=== PATIENT | male | born 1935 | race American Indian/Alaskan Native ===

== ENCOUNTER 2017-03-24 07:28 | Inpatient (IN) | payer MEDICARE, MEDICAID ==
[~2017-03-24] VITALS: Ht 157.5 cm; Wt 56.8 kg
[~2017-03-24 07:28] MED LIST: CARV3.12 PO; FAMO-128 PO; FLUT1DIS INH; FURO20TA4 PO; GUAI600T45 PO; LISI2.5T2 PO; SPIIN INH
[2017-03-24] MEDS ORDERED: normal saline 1000ml 1,000 ML IV ONE (07:34)
[2017-03-24] MEDS ORDERED: azithromycin/NS 500mg/250ml 250 ML IV ONE (07:35)
[2017-03-24] MEDS ORDERED: methylPREDNISolone sod succ 125mg/2ml vial IV ONE (07:35)
[2017-03-24] MEDS ORDERED: albuterol 2.5 MG/3 ML nebule NEB ONE (07:35)
[2017-03-24] MEDS ORDERED: aspirin 81mg tab.chew PO ONE (07:35)
[2017-03-24] MEDS ORDERED: CefTRIAXone 2gm/NS 100ml IVPB 100 ML IV ONE (07:35)
[2017-03-24] MEDS ORDERED: normal saline 1000ML IV soln IVB ONE (07:35)
[2017-03-24 08:00] LABS: ABG HCO3 28.2 mmol/L (22.0-26.0); ABG PCO2 (T) 46.4 mmHg (35.0-48.0); ABG PH (T) 7.402 (7.350-7.450); ABG PO2 (T) 287.3 mmHg (83-108); ALLEN'S TEST Positive; MINUTE VOLUME 20 L/min; RESPIRATORY RATE 15 b/min; RESPIRATORY RATE (OBSERVED) 25 b/min
[2017-03-24 08:01] LABS: ABG BASE EXCESS 2.8 mmol/L (-2.0-3.0); ABG OXYGEN SATURATION 99.5 % (95-98); FCOHb 0.9 % (0.5-1.5); FMetHb 0.3 % (0.3-1.12); FO2Hb 98.3 % (94-100)
[2017-03-24 08:19] LABS: BASOPHILS # (AUTO) 0.2 X10'3 (0-0.2); MONOCYTES # (AUTO) 0.9 X10'3 (0-0.9)
[2017-03-24 08:26] LABS: BASOPHILS % (AUTO) 2.1 % (0-1); EOSINOPHILS % (AUTO) 0.3 % (0-6); HEMATOCRIT 40.5 % (42.0-52.0); HEMOGLOBIN 14.1 g/dl (14.0-17.9); LYMPHOCYTES % (AUTO) 17.8 % (21-51); MEAN CORPUSCULAR HEMOGLOBIN 33.7 PG (27.0-31.0); MEAN CORPUSCULAR HGB CONC 34.7 % (33.0-36.5); MEAN CORPUSCULAR VOLUME 96.9 FL (78-98); MONOCYTES % (AUTO) 8.2 % (2-12); NEUTROPHILS # (AUTO) 8.3 X10'3 (1.8-7.7); NEUTROPHILS % (AUTO) 71.6 % (42-75); PLATELET COUNT 174 X10'3 (140-440); RED BLOOD COUNT 4.18 X10'6 (4.70-6.10); RED CELL DISTRIBUTION WIDTH 13.2 % (11.5-14.5); WHITE BLOOD COUNT 11.4 X10'3 (4.5-11.0)
[2017-03-24 09:12] LABS: PARTIAL THROMBOPLASTIN TIME 25 SECONDS (22-32); PROTHROMBIN TIME 10.4 SECONDS (9.0-12.0)
[2017-03-24] MEDS ORDERED: DOXY-224 (09:23)
[2017-03-24] MEDS ORDERED: ALBU18HF2 (09:23)
[2017-03-24] MEDS ORDERED: PRED50TA (09:23)
[2017-03-24 09:25] LABS: ALANINE AMINOTRANSFERASE 13 U/L (12-78); ALBUMIN 3.1 G/DL (3.4-5.0); ALBUMIN/GLOBULIN RATIO 0.7 (1.1-1.5); ALKALINE PHOSPHATASE 73 IU/L (46-116); ANION GAP 10 (8-16); ASPARTATE AMINO TRANSFERASE 17 U/L (10-37); BILIRUBIN,TOTAL 0.8 MG/DL (0.1-1.0); BLOOD UREA NITROGEN 20 MG/DL (7-18); BUN/CREATININE RATIO 15.4 (5.4-32.0); CALCIUM 9.1 MG/DL (8.5-10.1); CHLORIDE 106 MMOL/L (99-107); CREATINE KINASE 72 U/L (39-308); GLUCOSE 99 MG/DL (70-104); MAGNESIUM 1.8 MG/DL (1.5-2.4); PHOSPHORUS 2.8 MG/DL (2.3-4.5); POTASSIUM 3.7 MMOL/L (3.5-5.1); SODIUM 145 MMOL/L (135-145); TOTAL CARBON DIOXIDE 29.5 MMOL/L (24-32); TOTAL PROTEIN 7.6 G/DL (6.4-8.2); eGFR 53 ML/MIN
[2017-03-24 10:20] LABS: ABG BASE EXCESS 0.7 mmol/L (-2.0-3.0); ABG HCO3 26.7 mmol/L (22.0-26.0); ABG OXYGEN SATURATION 98.6 % (95-98); ABG PCO2 (T) 48.6 mmHg (35.0-48.0); ABG PH (T) 7.358 (7.350-7.450); ABG PO2 (T) 139.8 mmHg (83-108); ALLEN'S TEST Positive; FCOHb 0.2 % (0.5-1.5); FMetHb 0.3 % (0.3-1.12); FO2Hb 98.1 % (94-100); MINUTE VOLUME 13 L/min; RESPIRATORY RATE 15 b/min; RESPIRATORY RATE (OBSERVED) 18 b/min; TOTAL HEMOGLOBIN 13.1 G/dl (14.0-18.0)
[2017-03-24] MEDS ORDERED: normal saline 1000ml 1,000 ML IV SCH (10:28)
[2017-03-24] MEDS ORDERED: magnesium 2GM in 50ml NS 50 ML IV PRN (10:30)
[2017-03-24] MEDS ORDERED: pantoprazole 40mg Tablet.DR PO SCH (10:30)
[2017-03-24] MEDS ORDERED: HYDROcodone/acetaminophen 5mg/325mg tablet PO PRN (10:30)
[2017-03-24] MEDS ORDERED: acetaminophen 325mg tablet PO PRN ×2 (10:30)
[2017-03-24] MEDS ORDERED: magnesium Cl slow-release 64mg tablet PO PRN (10:30)
[2017-03-24] MEDS ORDERED: levoFLOXACIN-Levaquin 500mg/D5 100 ML IV SCH (10:30)
[2017-03-24] MEDS ORDERED: mag hydrox/Alum hydrox/simeth 30ml oral suspension PO PRN (10:30)
[2017-03-24] MEDS ORDERED: potassium Cl 40MEQ/NS 500ml 500 ML IV PRN ×2 (10:30)
[2017-03-24] MEDS ORDERED: potassium Cl 20 mEq SR tablet PO PRN ×2 (10:30)
[2017-03-24] MEDS ORDERED: magnesium 4gm in 100ml NS 100 ML IV PRN (10:30)
[2017-03-24] MEDS ORDERED: ondansetron/PF 4mg/2ml inj IV PRN (10:30)
[2017-03-24] MEDS ORDERED: K and/or MAG REPLACEMENT MC SCH (10:30)
[2017-03-24] MEDS ORDERED: enoxaparin 40mg/0.4ml syringe SUBCUT SCH (10:30)
[2017-03-24] MEDS ORDERED: magnesium hydroxide 30ml (MOM) UD suspension PO PRN (10:30)
[2017-03-24] MEDS ORDERED: ipratropium/albuterol 3ml nebule NEB PRN (10:30)
[2017-03-24] MEDS ORDERED: HYDROcodone/acetaminophen 10/325mg tab PO PRN (10:30)
[2017-03-24] MEDS ORDERED: ipratropium/albuterol 3ml nebule NEB SCH (11:00)
[2017-03-24 12:15] VITALS: BP 163/86
[2017-03-24] MEDS ORDERED: methylPREDNISolone sod succ 125mg/2ml vial IV SCH (14:00)
[2017-03-24] MEDS ORDERED: temazepam 15mg capsule PO PRN (21:00)
[2017-03-25] MEDS ORDERED: cefTRIAXone 1g/NS 100ml IVPB 100 ML IV SCH (08:00)
== END 2017-03-24 14:33 | disposition left against medical advice (07) | DRG 193 ==
LOC: ER 07:29 → PCU 3S 12:24
PROVIDERS: ADMIT Family Medicine; ATTEND Family Medicine
PROC: 5A09357 Assistance with Respiratory Ventilation, Less than 24 Consecutive Hours, Continuous Positive Airway Pressure (ICD-10-PCS; principal; 2017-03-24)
DX: J18.9 Pneumonia, unspecified organism (principal); J96.01 Acute respiratory failure with hypoxia; J44.0 Chronic obstructive pulmonary disease with (acute) lower respiratory infection; J44.1 Chronic obstructive pulmonary disease with (acute) exacerbation; Z53.21 Procedure and treatment not carried out due to patient leaving prior to being seen by health care provider; Z79.899 Other long term (current) drug therapy; Z87.891 Personal history of nicotine dependence
CPT/HCPCS: 36415; 36600; 71045; 80053; 82550; 82803; 83605; 83735; 83880; 84100; 84145; 84484; 85018; 85025; 85610; 85730; 87040; 87077; 93005; 93306; 94640; 94660; 94760; 96365; 96366; 96367; 96368; 96372; 96375; 99291; J0456; J0696; J1650; J1956; J2930; J7030

== ENCOUNTER 2017-06-13 08:21 | Emergency (ER) | payer MEDICARE, MEDICAID ==
[~2017-06-13] VITALS: Ht 170.2 cm; Wt 51.0 kg
[~2017-06-13 08:21] MED LIST changes: +ALBU18HF2; -CARV3.12 PO; +DOXY-224 PO; -FAMO-128 PO; -FLUT1DIS INH; -FURO20TA4 PO; -GUAI600T45 PO; -LISI2.5T2 PO; +PRED50TA; -SPIIN INH
[2017-06-13] MEDS ORDERED: albuterol 2.5 MG/3 ML nebule CONTNEB PRN (09:00)
[2017-06-13] MEDS ORDERED: dexamethasone 4mg tablet PO ONE (09:00)
[2017-06-13 09:31] LABS: ABG HCO3 25.4 mmol/L (22.0-26.0); ABG OXYGEN SATURATION 94.7 % (95-98); ABG PCO2 (T) 44.3 mmHg (35.0-48.0); ABG PH (T) 7.377 (7.350-7.450); ABG PO2 (T) 74.4 mmHg (83-108); ALLEN'S TEST Positive; FCOHb 0.7 % (0.5-1.5); FLOW 4 L/min; FMetHb 0.2 % (0.3-1.12); FO2Hb 93.8 % (94-100); TOTAL HEMOGLOBIN 12.9 G/dl (14.0-18.0)
[2017-06-13 09:34] LABS: BASOPHILS % (AUTO) 0.1 % (0-1); EOSINOPHILS # (AUTO) 0.1 X10'3 (0-0.9); EOSINOPHILS % (AUTO) 1.7 % (0-6); HEMATOCRIT 35.9 % (42.0-52.0); HEMOGLOBIN 12.2 g/dl (14.0-17.9); LYMPHOCYTES # (AUTO) 0.7 X10'3 (1.1-4.8); LYMPHOCYTES % (AUTO) 9.1 % (21-51); MEAN CORPUSCULAR HEMOGLOBIN 33.7 PG (27.0-31.0); MEAN CORPUSCULAR VOLUME 99.3 FL (78-98); MONOCYTES # (AUTO) 0.4 X10'3 (0-0.9); MONOCYTES % (AUTO) 4.9 % (2-12); NEUTROPHILS # (AUTO) 6.7 X10'3 (1.8-7.7); NEUTROPHILS % (AUTO) 84.2 % (42-75); PLATELET COUNT 185 X10'3 (140-440); RED BLOOD COUNT 3.62 X10'6 (4.70-6.10); RED CELL DISTRIBUTION WIDTH 14.2 % (11.5-14.5); WHITE BLOOD COUNT 7.9 X10'3 (4.5-11.0)
[2017-06-13 09:48] LABS: ALANINE AMINOTRANSFERASE 18 U/L (12-78); ALBUMIN 2.9 G/DL (3.4-5.0); ALBUMIN/GLOBULIN RATIO 0.7 (1.1-1.5); ALKALINE PHOSPHATASE 74 IU/L (46-116); ANION GAP 8 (8-16); ASPARTATE AMINO TRANSFERASE 19 U/L (10-37); BILIRUBIN,TOTAL 0.9 MG/DL (0.1-1.0); BLOOD UREA NITROGEN 19 MG/DL (7-18); BUN/CREATININE RATIO 13.9 (5.4-32.0); CALCIUM 9.1 MG/DL (8.5-10.1); CHLORIDE 105 MMOL/L (99-107); CREATININE 1.37 MG/DL (0.60-1.10); GLUCOSE 107 MG/DL (70-104); POTASSIUM 3.7 MMOL/L (3.5-5.1); SODIUM 142 MMOL/L (135-145); TOTAL PROTEIN 7.3 G/DL (6.4-8.2); eGFR 50 ML/MIN
[2017-06-13 09:51] LABS: PARTIAL THROMBOPLASTIN TIME 27 SECONDS (22-32); PROTHROMBIN TIME 10.7 SECONDS (9.0-12.0)
[2017-06-13] MEDS ORDERED: ALBU8HFA PO (09:55)
[2017-06-13] MEDS ORDERED: DOXY100C43 PO (09:55)
[2017-06-13] MEDS ORDERED: PRED5TAB PO (09:55)
[2017-06-13 10:39] VITALS: BP 166/84
== END 2017-06-13 10:43 | disposition home or self-care (01) ==
LOC: ER 08:21
DX: J44.1 Chronic obstructive pulmonary disease with (acute) exacerbation (principal); I45.10 Unspecified right bundle-branch block; Z79.899 Other long term (current) drug therapy; F17.210 Nicotine dependence, cigarettes, uncomplicated
CPT/HCPCS: 36415; 36600; 71045; 80053; 82803; 83605; 83880; 84484; 85018; 85025; 85610; 85730; 87040; 93005; 94644; 94760; 99285; 99406; J8540

== ENCOUNTER 2017-06-14 11:34 | Emergency (ER) | payer MEDICARE, MEDICAID ==
[~2017-06-14] VITALS: Ht 167.6 cm; Wt 48.0 kg
[~2017-06-14 11:34] MED LIST changes: +ALBU8HFA PO; +DOXY-224; -DOXY-224 PO; +DOXY100C43 PO; +PRED5TAB PO
[2017-06-14] MEDS ORDERED: CefTRIAXone 2gm/D5W 50ml 50 ML IV ONE (12:30)
[2017-06-14] MEDS ORDERED: albuterol 2.5 MG/3 ML nebule NEB ONE (12:30)
[2017-06-14] MEDS ORDERED: azithromycin/NS 500mg/250ml 250 ML IV ONE (12:30)
[2017-06-14] MEDS ORDERED: methylPREDNISolone sod succ 125mg/2ml vial IV ONE (12:30)
[2017-06-14 12:45] LABS: BASOPHILS # (AUTO) 0.1 X10'3 (0-0.2); BASOPHILS % (AUTO) 1.3 % (0-1); EOSINOPHILS % (AUTO) 0.1 % (0-6); HEMATOCRIT 36.1 % (42.0-52.0); HEMOGLOBIN 12.1 g/dl (14.0-17.9); LYMPHOCYTES # (AUTO) 1.2 X10'3 (1.1-4.8); LYMPHOCYTES % (AUTO) 11.6 % (21-51); MEAN CORPUSCULAR HEMOGLOBIN 33.3 PG (27.0-31.0); MEAN CORPUSCULAR HGB CONC 33.5 % (33.0-36.5); MEAN CORPUSCULAR VOLUME 99.4 FL (78-98); MEAN PLATELET VOLUME 8.7 FL (7.4-10.4); MONOCYTES # (AUTO) 0.8 X10'3 (0-0.9); MONOCYTES % (AUTO) 7.3 % (2-12); NEUTROPHILS # (AUTO) 8.3 X10'3 (1.8-7.7); NEUTROPHILS % (AUTO) 79.7 % (42-75); PLATELET COUNT 181 X10'3 (140-440); RED BLOOD COUNT 3.63 X10'6 (4.70-6.10); RED CELL DISTRIBUTION WIDTH 13.4 % (11.5-14.5); WHITE BLOOD COUNT 10.4 X10'3 (4.5-11.0)
[2017-06-14 13:00] LABS: ALANINE AMINOTRANSFERASE 18 U/L (12-78); ALBUMIN 3.2 G/DL (3.4-5.0); ALBUMIN/GLOBULIN RATIO 0.7 (1.1-1.5); ALKALINE PHOSPHATASE 76 IU/L (46-116); ANION GAP 8 (8-16); ASPARTATE AMINO TRANSFERASE 18 U/L (10-37); BILIRUBIN,TOTAL 0.9 MG/DL (0.1-1.0); BLOOD UREA NITROGEN 18 MG/DL (7-18); BUN/CREATININE RATIO 13.5 (5.4-32.0); CALCIUM 9.5 MG/DL (8.5-10.1); CHLORIDE 102 MMOL/L (99-107); CREATININE 1.33 MG/DL (0.60-1.10); GLUCOSE 98 MG/DL (70-104); POTASSIUM 4.3 MMOL/L (3.5-5.1); SODIUM 139 MMOL/L (135-145); TOTAL PROTEIN 7.5 G/DL (6.4-8.2); eGFR 52 ML/MIN
[2017-06-14 13:52] VITALS: BP 160/89
== END 2017-06-14 13:55 | disposition left against medical advice (07) ==
LOC: ER 11:34
DX: J44.1 Chronic obstructive pulmonary disease with (acute) exacerbation (principal); J90 Pleural effusion, not elsewhere classified; I25.10 Atherosclerotic heart disease of native coronary artery without angina pectoris; F17.200 Nicotine dependence, unspecified, uncomplicated; I50.9 Heart failure, unspecified; Z79.899 Other long term (current) drug therapy; Z99.81 Dependence on supplemental oxygen
CPT/HCPCS: 36415; 71046; 80053; 84484; 85025; 99285

== ENCOUNTER 2017-06-19 02:23 | Inpatient (IN) | payer MEDICARE, MEDICAID, OTHER ==
[~2017-06-19] VITALS: Ht 167.6 cm; Wt 59.0 kg
[~2017-06-19 02:23] MED LIST changes: -DOXY-224; +DOXY-224 PO
[2017-06-19] MEDS ORDERED: ipratropium/albuterol 3ml nebule NEB ONE (02:35)
[2017-06-19] MEDS ORDERED: dexamethasone 4mg tablet PO ONE (02:35)
[2017-06-19] MEDS ORDERED: normal saline 1000ML IV soln IV ONE (02:55)
[2017-06-19] MEDS ORDERED: azithromycin 250mg tablet PO ONE (02:55)
[2017-06-19] MEDS ORDERED: CefTRIAXone 2gm/D5W 50ml 50 ML IV ONE (02:55)
[2017-06-19 03:01] LABS: ABG BASE EXCESS 0.9 mmol/L (-2.0-3.0); ABG HCO3 24.9 mmol/L (22.0-26.0); ABG OXYGEN SATURATION 95.9 % (95-98); ABG PCO2 (T) 36.9 mmHg (35.0-48.0); ABG PH (T) 7.444 (7.350-7.450); ABG PO2 (T) 76.8 mmHg (83-108); ALLEN'S TEST Positive; FLOW 3 L/min; FMetHb 0.1 % (0.3-1.12); FO2Hb 94.8 % (94-100); PATIENT TEMPERATURE 36.5; TOTAL HEMOGLOBIN 13.3 G/dl (14.0-18.0)
[2017-06-19 03:03] LABS: BASOPHILS % (AUTO) 0.5 % (0-1); EOSINOPHILS # (AUTO) 0.1 X10'3 (0-0.9); EOSINOPHILS % (AUTO) 1.5 % (0-6); HEMATOCRIT 37.4 % (42.0-52.0); HEMOGLOBIN 12.8 g/dl (14.0-17.9); LYMPHOCYTES # (AUTO) 1.4 X10'3 (1.1-4.8); LYMPHOCYTES % (AUTO) 18.1 % (21-51); MEAN CORPUSCULAR HEMOGLOBIN 33.9 PG (27.0-31.0); MEAN CORPUSCULAR HGB CONC 34.2 % (33.0-36.5); MEAN CORPUSCULAR VOLUME 99.2 FL (78-98); MEAN PLATELET VOLUME 8.6 FL (7.4-10.4); MONOCYTES # (AUTO) 0.6 X10'3 (0-0.9); MONOCYTES % (AUTO) 7.3 % (2-12); NEUTROPHILS # (AUTO) 5.6 X10'3 (1.8-7.7); NEUTROPHILS % (AUTO) 72.6 % (42-75); PLATELET COUNT 192 X10'3 (140-440); RED BLOOD COUNT 3.77 X10'6 (4.70-6.10); RED CELL DISTRIBUTION WIDTH 14.8 % (11.5-14.5); WHITE BLOOD COUNT 7.7 X10'3 (4.5-11.0)
[2017-06-19 03:50] LABS: ALANINE AMINOTRANSFERASE 11 U/L (12-78); ALBUMIN 2.7 G/DL (3.4-5.0); ALBUMIN/GLOBULIN RATIO 0.7 (1.1-1.5); ALKALINE PHOSPHATASE 66 IU/L (46-116); ANION GAP 10 (8-16); ASPARTATE AMINO TRANSFERASE 16 U/L (10-37); BILIRUBIN,TOTAL 0.7 MG/DL (0.1-1.0); BLOOD UREA NITROGEN 21 MG/DL (7-18); CALCIUM 8.4 MG/DL (8.5-10.1); CHLORIDE 108 MMOL/L (99-107); GLUCOSE 106 MG/DL (70-104); SODIUM 144 MMOL/L (135-145); TOTAL CARBON DIOXIDE 26.5 MMOL/L (24-32); TOTAL PROTEIN 6.6 G/DL (6.4-8.2); eGFR 49 ML/MIN
[2017-06-19] MEDS ORDERED: furosemide 10 MG/1 ML 10ml inj IV ONE (04:00)
[2017-06-19] MEDS ORDERED: LORazepam 2 mg/ml vial IV ONE (04:20)
[2017-06-19] MEDS ORDERED: acetaminophen 325mg tablet PO PRN (05:00)
[2017-06-19] MEDS ORDERED: HYDROcodone/acetaminophen 5mg/325mg tablet PO PRN (05:00)
[2017-06-19] MEDS ORDERED: ondansetron/PF 4mg/2ml inj IV PRN (05:00)
[2017-06-19] MEDS ORDERED: morphine 4 MG/ML inj SYRINge IV PRN (05:00)
[2017-06-19] MEDS ORDERED: FLU VACC QS2017-18 36MOS UP/PF 60 MCG/0.5 ML SYRINGE IMVAC ONE (07:55)
[2017-06-19] MEDS ORDERED: pneumococcal 23-VAL P-sac vacc 25 mcg/0.5ml vial IMVAC ONE (07:55)
[2017-06-19 08:00] VITALS: BP 153/85
[2017-06-19] MEDS ORDERED: furosemide 10 MG/1 ML 10ml inj IV SCH (08:00)
[2017-06-19] MEDS ORDERED: methylPREDNISolone sod succ 125mg/2ml vial IV SCH (08:00)
[2017-06-19] MEDS ORDERED: furosemide 40mg/4ml inj IV SCH (08:00)
[2017-06-19] MEDS ORDERED: lisinopril 5mg tablet PO SCH (08:00)
[2017-06-19] MEDS: ipratropium/albuterol 3ml nebule NEB SCH ×5 (08:43→23:42)
[2017-06-19] MEDS: budesonide 0.5mg/2ml UD nebule IH SCH ×2 (08:44→19:10)
[2017-06-19] MEDS: methylPREDNISolone sod succ/PF 40mg inj. IV SCH ×2 (08:45→16:16)
[2017-06-19] MEDS: aspirin 81mg tab.chew PO SCH (08:52)
[2017-06-19] MEDS: carVEDilol 3.125mg tablet PO SCH ×2 (08:52→20:00)
[2017-06-19 12:00] VITALS: BP 134/71
[2017-06-19 19:00] VITALS: BP 100/59
[2017-06-19] MEDS: furosemide 20 MG/2 ML vial IV SCH (20:21)
[2017-06-20] VITALS: BP 102/59
[2017-06-20] MEDS: methylPREDNISolone sod succ/PF 40mg inj. IV SCH ×4 (00:24→23:57)
[2017-06-20] MEDS: ipratropium/albuterol 3ml nebule NEB SCH ×5 (03:39→20:31)
[2017-06-20 05:51] LABS: BASOPHILS % (AUTO) 0 % (0-1); EOSINOPHILS # (AUTO) 0.1 X10'3 (0-0.9); EOSINOPHILS % (AUTO) 1.3 % (0-6); HEMATOCRIT 34.7 % (42.0-52.0); HEMOGLOBIN 11.8 g/dl (14.0-17.9); LYMPHOCYTES # (AUTO) 0.6 X10'3 (1.1-4.8); LYMPHOCYTES % (AUTO) 7.8 % (21-51); MEAN CORPUSCULAR HEMOGLOBIN 33.5 PG (27.0-31.0); MEAN CORPUSCULAR HGB CONC 34.1 % (33.0-36.5); MEAN CORPUSCULAR VOLUME 98.4 FL (78-98); MEAN PLATELET VOLUME 8.5 FL (7.4-10.4); MONOCYTES # (AUTO) 0.3 X10'3 (0-0.9); MONOCYTES % (AUTO) 3.8 % (2-12); NEUTROPHILS # (AUTO) 6.8 X10'3 (1.8-7.7); NEUTROPHILS % (AUTO) 87.1 % (42-75); PLATELET COUNT 192 X10'3 (140-440); RED BLOOD COUNT 3.53 X10'6 (4.70-6.10); RED CELL DISTRIBUTION WIDTH 14.1 % (11.5-14.5); WHITE BLOOD COUNT 7.8 X10'3 (4.5-11.0)
[2017-06-20 06:15] LABS: ALBUMIN 2.8 G/DL (3.4-5.0); ANION GAP 7 (8-16); BLOOD UREA NITROGEN 33 MG/DL (7-18); CALCIUM 8.6 MG/DL (8.5-10.1); CHLORIDE 103 MMOL/L (99-107); CHOL/HDL RATIO 2.5 (0.00-4.99); CHOLESTEROL 177 MG/DL (0-200); CREATININE 1.94 MG/DL (0.60-1.10); GLUCOSE 139 MG/DL (70-104); HDL CHOLESTEROL 72 MG/DL (35-60); LDL CHOLESTEROL 88 MG/DL (50-100); POTASSIUM 3.6 MMOL/L (3.5-5.1); SODIUM 143 MMOL/L (135-145); TOTAL CARBON DIOXIDE 32.7 MMOL/L (24-32); TRIGLYCERIDES 52 MG/DL (20-135); eGFR 33 ML/MIN
[2017-06-20] MEDS: furosemide 20 MG/2 ML vial IV SCH ×2 (08:00→21:00)
[2017-06-20] MEDS: budesonide 0.5mg/2ml UD nebule IH SCH ×2 (08:07→20:31)
[2017-06-20] MEDS: CefTRIAXone/D5W-Rocephin 1gm 50 ML IV SCH (09:01)
[2017-06-20] MEDS: aspirin 81mg tab.chew PO SCH (09:01)
[2017-06-20] MEDS: carVEDilol 3.125mg tablet PO SCH ×2 (09:01→21:00)
[2017-06-20] MEDS: lisinopril 5mg tablet PO SCH (09:02)
[2017-06-20 09:19] VITALS: BP 126/70
[2017-06-20 11:17] VITALS: BP 124/61
[2017-06-20] MEDS ORDERED: LORazepam 2 mg/ml vial IV ONE (16:15)
[2017-06-20] MEDS ORDERED: LORazepam 2 mg/ml vial IV PRN (16:15)
[2017-06-20 19:00] VITALS: BP 123/72
[2017-06-20] MEDS: lactobacillus rhamnosus 10,000 MMU CELLS/CAPSULE PO SCH (21:01)
[2017-06-21] VITALS: BP 136/72
[2017-06-21] MEDS: ipratropium/albuterol 3ml nebule NEB SCH ×3 (00:12→08:13)
[2017-06-21 06:02] LABS: BASOPHILS % (AUTO) 0 % (0-1); EOSINOPHILS # (AUTO) 0.2 X10'3 (0-0.9); EOSINOPHILS % (AUTO) 1.9 % (0-6); HEMATOCRIT 33.2 % (42.0-52.0); HEMOGLOBIN 11.4 g/dl (14.0-17.9); LYMPHOCYTES # (AUTO) 0.5 X10'3 (1.1-4.8); LYMPHOCYTES % (AUTO) 4.2 % (21-51); MEAN CORPUSCULAR HEMOGLOBIN 33.6 PG (27.0-31.0); MEAN CORPUSCULAR HGB CONC 34.3 % (33.0-36.5); MEAN CORPUSCULAR VOLUME 97.9 FL (78-98); MEAN PLATELET VOLUME 8.5 FL (7.4-10.4); MONOCYTES # (AUTO) 0.4 X10'3 (0-0.9); MONOCYTES % (AUTO) 3.8 % (2-12); NEUTROPHILS % (AUTO) 90.1 % (42-75); PLATELET COUNT 191 X10'3 (140-440); RED CELL DISTRIBUTION WIDTH 14.1 % (11.5-14.5); WHITE BLOOD COUNT 11.1 X10'3 (4.5-11.0)
[2017-06-21 06:17] LABS: ALBUMIN 2.6 G/DL (3.4-5.0); ANION GAP 9 (8-16); BLOOD UREA NITROGEN 41 MG/DL (7-18); BUN/CREATININE RATIO 24.6 (5.4-32.0); CALCIUM 8.7 MG/DL (8.5-10.1); CHLORIDE 100 MMOL/L (99-107); CREATININE 1.67 MG/DL (0.60-1.10); GLUCOSE 125 MG/DL (70-104); POTASSIUM 3.6 MMOL/L (3.5-5.1); SODIUM 139 MMOL/L (135-145); TOTAL CARBON DIOXIDE 30.5 MMOL/L (24-32); eGFR 40 ML/MIN
[2017-06-21 07:09] VITALS: BP 132/79
[2017-06-21] MEDS: budesonide 0.5mg/2ml UD nebule IH SCH (08:13)
[2017-06-21] MEDS: furosemide 20 MG/2 ML vial IV SCH (09:08)
[2017-06-21] MEDS: methylPREDNISolone sod succ/PF 40mg inj. IV SCH (09:08)
[2017-06-21] MEDS: CefTRIAXone/D5W-Rocephin 1gm 50 ML IV SCH (09:09)
[2017-06-21] MEDS: lisinopril 5mg tablet PO SCH (09:09)
[2017-06-21] MEDS: aspirin 81mg tab.chew PO SCH (09:11)
[2017-06-21] MEDS: carVEDilol 3.125mg tablet PO SCH (09:11)
[2017-06-21] MEDS: lactobacillus rhamnosus 10,000 MMU CELLS/CAPSULE PO SCH (09:12)
[2017-06-21] MEDS ORDERED: levoFLOXACIN 250mg tablet PO SCH (09:50)
[2017-06-21] MEDS ORDERED: LORazepam 0.5 MG tablet PO PRN (09:50)
[2017-06-21] MEDS ORDERED: PRED20TA PO (10:28)
[2017-06-21] MEDS ORDERED: COR3.125T PO (10:28)
[2017-06-21] MEDS ORDERED: ASPI-1265 PO (10:28)
[2017-06-21] MEDS ORDERED: LISI-604 PO (10:28)
[2017-06-21] MEDS ORDERED: LEVO250T58 PO (10:28)
[2017-06-21] MEDS ORDERED: FURO20TA4 PO (10:28)
[2017-06-21] MEDS ORDERED: predniSONE 20 mg tablet PO SCH (14:00)
[2017-06-22] MEDS ORDERED: furosemide 20MG tablet PO SCH (08:00)
== END 2017-06-21 10:53 | disposition left against medical advice (07) | DRG 291 ==
LOC: ER 02:24 → ED HOLD 04:56 → SUR 3N 07:54
PROVIDERS: ADMIT Family Medicine; ATTEND Family Medicine
DX: I13.0 Hypertensive heart and chronic kidney disease with heart failure and stage 1 through stage 4 chronic kidney disease, or unspecified chronic kidney disease (principal); I50.23 Acute on chronic systolic (congestive) heart failure; J96.00 Acute respiratory failure, unspecified whether with hypoxia or hypercapnia; J18.9 Pneumonia, unspecified organism; J44.0 Chronic obstructive pulmonary disease with (acute) lower respiratory infection; N18.3 Chronic kidney disease, stage 3 (moderate); D64.9 Anemia, unspecified; Z99.81 Dependence on supplemental oxygen; J44.1 Chronic obstructive pulmonary disease with (acute) exacerbation; I25.10 Atherosclerotic heart disease of native coronary artery without angina pectoris; F17.210 Nicotine dependence, cigarettes, uncomplicated; F12.90 Cannabis use, unspecified, uncomplicated; Z66 Do not resuscitate; Z53.21 Procedure and treatment not carried out due to patient leaving prior to being seen by health care provider; Z91.19 Patient's noncompliance with other medical treatment and regimen; Z28.21 Immunization not carried out because of patient refusal; Z79.899 Other long term (current) drug therapy; Z82.5 Family history of asthma and other chronic lower respiratory diseases; Z71.6 Tobacco abuse counseling
CPT/HCPCS: 36415; 36600; 71045; 80048; 80053; 80061; 82803; 83605; 83880; 84145; 84484; 85018; 85025; 87040; 87070; 90732; 93005; 94640; 94760; J0696; J1940; J2060; J2270; J2920; J7030; J7626; J8540; Q2037

== ENCOUNTER 2017-08-05 07:22 | Emergency (ER) | payer MEDICARE, MEDICAID ==
[~2017-08-05] VITALS: Ht 177.8 cm; Wt 45.0 kg
[~2017-08-05 07:22] MED LIST changes: -ALBU8HFA PO; +ASPI-1265 PO; +COR3.125T PO; -DOXY-224 PO; -DOXY100C43 PO; +FURO20TA4 PO; +LEVO250T58 PO; +LISI-604 PO; +PRED20TA PO; -PRED50TA; -PRED5TAB PO
[2017-08-05] MEDS ORDERED: nitroGLYCERIN-Tridil 50MG/D5W 250 ML IV PRN (07:29)
[2017-08-05] MEDS ORDERED: aspirin 81mg tab.chew PO ONE (07:30)
[2017-08-05 08:09] LABS: BASOPHILS % (AUTO) 0.3 % (0-1); EOSINOPHILS # (AUTO) 0.1 X10'3 (0-0.9); EOSINOPHILS % (AUTO) 1.4 % (0-6); HEMATOCRIT 35.8 % (42.0-52.0); HEMOGLOBIN 12.2 g/dl (14.0-17.9); LYMPHOCYTES # (AUTO) 0.8 X10'3 (1.1-4.8); LYMPHOCYTES % (AUTO) 8.2 % (21-51); MEAN CORPUSCULAR HEMOGLOBIN 33.5 PG (27.0-31.0); MEAN CORPUSCULAR VOLUME 98.5 FL (78-98); MEAN PLATELET VOLUME 8.8 FL (7.4-10.4); MONOCYTES # (AUTO) 0.5 X10'3 (0-0.9); MONOCYTES % (AUTO) 4.7 % (2-12); NEUTROPHILS # (AUTO) 8.3 X10'3 (1.8-7.7); NEUTROPHILS % (AUTO) 85.4 % (42-75); PLATELET COUNT 189 X10'3 (140-440); RED BLOOD COUNT 3.64 X10'6 (4.70-6.10); RED CELL DISTRIBUTION WIDTH 14.9 % (11.5-14.5); WHITE BLOOD COUNT 9.7 X10'3 (4.5-11.0)
[2017-08-05 08:22] LABS: ALANINE AMINOTRANSFERASE 9 U/L (12-78); ALBUMIN 2.8 G/DL (3.4-5.0); ALBUMIN/GLOBULIN RATIO 0.7 (1.1-1.5); ALKALINE PHOSPHATASE 67 IU/L (46-116); ANION GAP 8 (8-16); BLOOD UREA NITROGEN 19 MG/DL (7-18); BUN/CREATININE RATIO 13.9 (5.4-32.0); CALCIUM 8.6 MG/DL (8.5-10.1); CHLORIDE 108 MMOL/L (99-107); CREATININE 1.37 MG/DL (0.60-1.10); GLUCOSE 98 MG/DL (70-104); SODIUM 143 MMOL/L (135-145); TOTAL CARBON DIOXIDE 27.3 MMOL/L (24-32); TOTAL PROTEIN 6.9 G/DL (6.4-8.2); eGFR 50 ML/MIN
[2017-08-05 08:27] LABS: MAGNESIUM 1.9 MG/DL (1.5-2.4)
[2017-08-05 08:30] LABS: ASPARTATE AMINO TRANSFERASE 18 U/L (10-37); POTASSIUM 4.1 MMOL/L (3.5-5.1)
[2017-08-05 09:37] VITALS: BP 167/98
== END 2017-08-05 09:20 | disposition left against medical advice (07) ==
LOC: ER 07:22
DX: J44.1 Chronic obstructive pulmonary disease with (acute) exacerbation (principal); I13.0 Hypertensive heart and chronic kidney disease with heart failure and stage 1 through stage 4 chronic kidney disease, or unspecified chronic kidney disease; I50.9 Heart failure, unspecified; N18.9 Chronic kidney disease, unspecified; I25.10 Atherosclerotic heart disease of native coronary artery without angina pectoris; Z87.891 Personal history of nicotine dependence; Z79.82 Long term (current) use of aspirin; Z79.899 Other long term (current) drug therapy
CPT/HCPCS: 36415; 71045; 80053; 83735; 83880; 84484; 85025; 93005; 96365; 99285; J3490

== ENCOUNTER 2018-05-10 09:45 | Inpatient (IN) | payer MEDICARE, MEDICAID ==
[~2018-05-10] VITALS: Ht 167.6 cm; Wt 50.0 kg
[2018-05-10] MEDS ORDERED: ipratropium/albuterol 3ml nebule NEB ONE (09:50)
[2018-05-10 10:07] LABS: BASOPHILS % (AUTO) 0.4 % (0-1); EOSINOPHILS % (AUTO) 0.1 % (0-6); HEMOGLOBIN 12.7 g/dl (14.0-17.9); LYMPHOCYTES # (AUTO) 0.7 X10'3 (1.1-4.8); LYMPHOCYTES % (AUTO) 10.5 % (21-51); MEAN CORPUSCULAR HEMOGLOBIN 32.6 PG (27.0-31.0); MEAN CORPUSCULAR HGB CONC 33.4 g/dL (33.0-36.5); MEAN CORPUSCULAR VOLUME 97.7 FL (78-98); MEAN PLATELET VOLUME 8.3 FL (7.4-10.4); MONOCYTES # (AUTO) 0.5 X10'3 (0-0.9); MONOCYTES % (AUTO) 6.7 % (2-12); NEUTROPHILS # (AUTO) 5.7 X10'3 (1.8-7.7); NEUTROPHILS % (AUTO) 82.3 % (42-75); PLATELET COUNT 191 X10'3 (140-440); RED BLOOD COUNT 3.89 X10'6 (4.70-6.10); RED CELL DISTRIBUTION WIDTH 15.9 % (11.5-14.5); WHITE BLOOD COUNT 6.9 X10'3 (4.5-11.0)
[2018-05-10 10:23] LABS: ALANINE AMINOTRANSFERASE 13 U/L (12-78); ALBUMIN 3.1 G/DL (3.4-5.0); ALBUMIN/GLOBULIN RATIO 0.7 (1.1-1.5); ALKALINE PHOSPHATASE 79 IU/L (46-116); ANION GAP 11 (8-16); ASPARTATE AMINO TRANSFERASE 23 U/L (10-37); BILIRUBIN,TOTAL 1.2 MG/DL (0.1-1.0); BLOOD UREA NITROGEN 20 MG/DL (7-18); CALCIUM 9.2 MG/DL (8.5-10.1); CHLORIDE 101 MMOL/L (99-107); CREATININE 1.67 MG/DL (0.60-1.10); GLUCOSE 109 MG/DL (70-104); POTASSIUM 4.4 MMOL/L (3.5-5.1); SODIUM 138 MMOL/L (135-145); TOTAL CARBON DIOXIDE 25.9 MMOL/L (24-32); TOTAL PROTEIN 7.5 G/DL (6.4-8.2); eGFR 40 ML/MIN
[2018-05-10 10:39] LABS: INR 1.1 INR; PARTIAL THROMBOPLASTIN TIME 27 SECONDS (22-32); PROTHROMBIN TIME 11.4 SECONDS (9.0-12.0)
--- NOTE | 2018-05-10 10:52 | NUR ---
PT REQUEST TO SIT UP IN CHAIR. PT TRANSEFERRED TO CHAIR FOR COMFORT, NO ASSISTANCE NEEDED. NO DISTRESS NOTED. WILL CONTINUE TO MONITOR.
[2018-05-10] MEDS ORDERED: NO HOME MEDS (12:29)
[2018-05-10] MEDS ORDERED: potassium Cl 40MEQ/NS 500ml 500 ML IV PRN ×2 (13:55)
[2018-05-10] MEDS ORDERED: magnesium 4gm in 100ml NS 100 ML IV PRN (13:55)
[2018-05-10] MEDS ORDERED: magnesium 2GM in 50ml NS 50 ML IV PRN (13:55)
[2018-05-10] MEDS ORDERED: potassium Cl 20 mEq SR tablet PO PRN ×2 (13:55)
[2018-05-10] MEDS ORDERED: ondansetron/PF 4mg/2ml inj IV PRN (13:55)
[2018-05-10] MEDS ORDERED: magnesium hydroxide 30ml (MOM) UD suspension PO PRN (13:55)
[2018-05-10] MEDS ORDERED: acetaminophen 325mg tablet PO PRN (13:55)
[2018-05-10] MEDS ORDERED: magnesium Cl slow-release 64mg tablet PO PRN (13:55)
[2018-05-10] MEDS ORDERED: mag hydrox/Alum hydrox/simeth 30ml oral suspension PO PRN (13:55)
[2018-05-10 14:56] LABS: ABG BASE EXCESS 0.7 mmol/L (-2.0-3.0); ABG OXYGEN SATURATION 94.7 % (95-98); ABG PCO2 (T) 34.4 mmHg (35.0-48.0); ABG PH (T) 7.462 (7.350-7.450); ABG PO2 (T) 76.3 mmHg (83-108); FCOHb 0.3 % (0.5-1.5); FMetHb 0.2 % (0.3-1.12); FO2Hb 94.2 % (94-100); TOTAL HEMOGLOBIN 12.9 G/dl (14.0-18.0)
[2018-05-10] MEDS: CefTRIAXone/D5W-Rocephin 1gm 50 ML IV SCH (15:22)
[2018-05-10] MEDS: methylPREDNISolone sod succ/PF 40mg inj. IV SCH (15:22)
[2018-05-10] MEDS ORDERED: albuterol 2.5 MG/3 ML nebule NEB PRN (16:30)
[2018-05-10] MEDS: heparin, porcine 5000 units/ml vial SQ SCH ×3 (20:00→20:09)
[2018-05-10] MEDS: carVEDilol 3.125mg tablet PO SCH (20:05)
--- NOTE | 2018-05-10 20:10 | NUR ---
AFTER SPEAKING WITH PT ABOUT HIS NIGHTIME RX HE AGREED TO TAKE, I THEN PULLED UP HEPARIN DOSE AND WENT TO ADMINISTER AND PT REFUSED SHOT SAYING "NOTHINGS WRONG WITH ME". NON ADMIN HEPARIN SHOT.
[2018-05-10] MEDS ORDERED: Melatonin 3mg tablet PO SCH (21:00)
[2018-05-10] MEDS ORDERED: Melatonin 3mg tablet PO ONE (21:25)
--- NOTE | 2018-05-10 21:39 | NUR ---
PT SITTING UP ON SIDE OF BED. NO DISTRESS NOTED AT THIS TIME.
[2018-05-11] MEDS: methylPREDNISolone sod succ/PF 40mg inj. IV SCH ×3 (00:49→16:01)
--- NOTE | 2018-05-11 01:25 | NUR ---
Patient in room PCU 3027. I have received report from Nani SOLITARIO and had the opportunity to ask questions and assume patient care.
--- NOTE | 2018-05-11 01:35 | NUR ---
Patient arrived to room 3027A via gurney from the ER very SOB, all belongings on person. Patient was oriented to room, call light, and plan of care. All questions answered. Tele monitor put on and vital signs stable. Will continue to monitor.
[2018-05-11 01:40] VITALS: BP 167/104
[2018-05-11 05:55] LABS: BASOPHILS % (AUTO) 0.2 % (0-1); EOSINOPHILS % (AUTO) 0 % (0-6); HEMATOCRIT 37.7 % (42.0-52.0); HEMOGLOBIN 12.4 g/dl (14.0-17.9); LYMPHOCYTES # (AUTO) 0.4 X10'3 (1.1-4.8); LYMPHOCYTES % (AUTO) 11.5 % (21-51); MEAN CORPUSCULAR HEMOGLOBIN 32.2 PG (27.0-31.0); MEAN CORPUSCULAR VOLUME 97.7 FL (78-98); MEAN PLATELET VOLUME 8.7 FL (7.4-10.4); MONOCYTES # (AUTO) 0.1 X10'3 (0-0.9); MONOCYTES % (AUTO) 2.4 % (2-12); NEUTROPHILS # (AUTO) 2.8 X10'3 (1.8-7.7); NEUTROPHILS % (AUTO) 85.9 % (42-75); PLATELET COUNT 181 X10'3 (140-440); RED BLOOD COUNT 3.86 X10'6 (4.70-6.10); RED CELL DISTRIBUTION WIDTH 15.7 % (11.5-14.5); WHITE BLOOD COUNT 3.3 X10'3 (4.5-11.0)
[2018-05-11 06:00] VITALS: BP 170/87
[2018-05-11 06:13] LABS: ALBUMIN 2.8 G/DL (3.4-5.0); ALBUMIN/GLOBULIN RATIO 0.6 (1.1-1.5); ANION GAP 7 (8-16); ASPARTATE AMINO TRANSFERASE 15 U/L (10-37); BILIRUBIN,TOTAL 0.9 MG/DL (0.1-1.0); BLOOD UREA NITROGEN 27 MG/DL (7-18); BUN/CREATININE RATIO 16.5 (5.4-32.0); CALCIUM 8.9 MG/DL (8.5-10.1); CHLORIDE 101 MMOL/L (99-107); CREATININE 1.64 MG/DL (0.60-1.10); GLUCOSE 135 MG/DL (70-104); POTASSIUM 4.4 MMOL/L (3.5-5.1); SODIUM 136 MMOL/L (135-145); TOTAL CARBON DIOXIDE 27.6 MMOL/L (24-32); TOTAL PROTEIN 7.2 G/DL (6.4-8.2); eGFR 41 ML/MIN
[2018-05-11 06:14] LABS: ALANINE AMINOTRANSFERASE 10 U/L (12-78); ALKALINE PHOSPHATASE 71 IU/L (46-116)
--- NOTE | 2018-05-11 06:14 | NUR ---
Problems reprioritized. Patient report given, questions answered & plan of care reviewed with Evan SOLITARIO.
--- NOTE | 2018-05-11 06:37 | NUR ---
Patient in room PCU 3027. I have received report from Brooklynn SOLITARIO and had the opportunity to ask questions and assume patient care.
[2018-05-11] MEDS: K and/or MAG REPLACEMENT MC SCH (07:17)
[2018-05-11] MEDS ORDERED: enoxaparin 50mg/0.5ml (from 3ml vial) syringe SUBCUT SCH (09:20)
[2018-05-11] MEDS ORDERED: azithromycin/NS 500mg/250ml 250 ML IV ONE (09:20)
[2018-05-11] MEDS: CefTRIAXone/D5W-Rocephin 1gm 50 ML IV SCH (09:26)
[2018-05-11] MEDS: carVEDilol 3.125mg tablet PO SCH ×2 (09:28→20:04)
[2018-05-11] MEDS: lisinopril 10 MG tablet PO SCH (09:29)
[2018-05-11 10:00] VITALS: BP 120/74
--- NOTE | 2018-05-11 10:16 | NUR ---
Paged ramiro nurse to ramiro patient
--- NOTE | 2018-05-11 12:47 | NUR ---
marcel Ghotra Patient is complaining of pain and SOB can we order something for pain and anxiety, will continue to monitor Addendum: 05/11/18 at 1432 by Evan Salazar RN Dr. Ghotra ordered [place] 10/ Q4 hours PRN pain will continue to monitor patient to see if anxiety is also reduced by norco
[2018-05-11] MEDS: HYDROcodone/acetaminophen 10/325mg tab PO PRN (13:19)
[2018-05-11] MEDS: ipratropium/albuterol 3ml nebule NEB SCH ×3 (14:23→23:11)
[2018-05-11 15:00] VITALS: BP 122/84
[2018-05-11 18:00] VITALS: BP 122/71
--- NOTE | 2018-05-11 18:17 | NUR ---
Patient in room PCU 3027. I have received report from ALTAF Gordon and had the opportunity to ask questions and assume patient care.
--- NOTE | 2018-05-11 18:17 | NUR ---
Problems reprioritized. Patient report given, questions answered & plan of care reviewed with Gordon SOLITARIO.
[2018-05-11] MEDS: Melatonin 3mg tablet PO SCH (20:04)
[2018-05-11 22:00] VITALS: BP 114/54
[2018-05-12] MEDS: methylPREDNISolone sod succ/PF 40mg inj. IV SCH ×3 (01:22→16:52)
[2018-05-12 02:00] VITALS: BP 121/71
[2018-05-12] MEDS: HYDROcodone/acetaminophen 10/325mg tab PO PRN ×2 (02:26→21:17)
[2018-05-12] MEDS: ipratropium/albuterol 3ml nebule NEB SCH ×6 (03:16→23:05)
[2018-05-12 06:00] VITALS: BP 122/69
--- NOTE | 2018-05-12 06:00 | NUR ---
Patient in room PCU 3027. I have received report from ALTAF Leyva and had the opportunity to ask questions and assume patient care.
[2018-05-12 06:01] LABS: BASOPHILS % (AUTO) 0.1 % (0-1); EOSINOPHILS % (AUTO) 0 % (0-6); HEMATOCRIT 30.1 % (42.0-52.0); HEMOGLOBIN 10.3 g/dl (14.0-17.9); LYMPHOCYTES # (AUTO) 0.6 X10'3 (1.1-4.8); MEAN CORPUSCULAR HEMOGLOBIN 33.1 PG (27.0-31.0); MEAN CORPUSCULAR HGB CONC 34.2 g/dL (33.0-36.5); MEAN CORPUSCULAR VOLUME 96.7 FL (78-98); MEAN PLATELET VOLUME 9.2 FL (7.4-10.4); MONOCYTES # (AUTO) 0.4 X10'3 (0-0.9); MONOCYTES % (AUTO) 4.3 % (2-12); NEUTROPHILS # (AUTO) 7.8 X10'3 (1.8-7.7); NEUTROPHILS % (AUTO) 88.6 % (42-75); PLATELET COUNT 151 X10'3 (140-440); RED BLOOD COUNT 3.12 X10'6 (4.70-6.10); RED CELL DISTRIBUTION WIDTH 15.4 % (11.5-14.5); WHITE BLOOD COUNT 8.8 X10'3 (4.5-11.0)
[2018-05-12 06:27] LABS: ALANINE AMINOTRANSFERASE 9 U/L (12-78); ALBUMIN 2.4 G/DL (3.4-5.0); ALBUMIN/GLOBULIN RATIO 0.7 (1.1-1.5); ALKALINE PHOSPHATASE 58 IU/L (46-116); ANION GAP 7 (8-16); ASPARTATE AMINO TRANSFERASE 13 U/L (10-37); BILIRUBIN,TOTAL 0.4 MG/DL (0.1-1.0); BLOOD UREA NITROGEN 42 MG/DL (7-18); BUN/CREATININE RATIO 22.5 (5.4-32.0); CALCIUM 8.4 MG/DL (8.5-10.1); CHLORIDE 102 MMOL/L (99-107); CREATININE 1.87 MG/DL (0.60-1.10); GLUCOSE 133 MG/DL (70-104); POTASSIUM 4.4 MMOL/L (3.5-5.1); SODIUM 136 MMOL/L (135-145); eGFR 35 ML/MIN
--- NOTE | 2018-05-12 06:31 | NUR ---
Problems reprioritized. Patient report given, questions answered & plan of care reviewed with Matt Pinto and MATT Grady.
[2018-05-12] MEDS: K and/or MAG REPLACEMENT MC SCH (06:50)
[2018-05-12] MEDS: lisinopril 10 MG tablet PO SCH (08:17)
[2018-05-12] MEDS: carVEDilol 3.125mg tablet PO SCH ×2 (08:17→21:18)
[2018-05-12] MEDS: CefTRIAXone/D5W-Rocephin 1gm 50 ML IV SCH (08:18)
[2018-05-12] MEDS: enoxaparin 50mg/0.5ml (from 3ml vial) syringe SUBCUT SCH (09:37)
--- NOTE | 2018-05-12 10:06 | NUR ---
PAGER ID: [phone] MESSAGE: ALTAF Grady [phone], [id number] Peri Quinones Just wanted to let you know pt. refused lovenox. Thank you
[2018-05-12 11:00] VITALS: BP 134/78
--- NOTE | 2018-05-12 13:33 | NUR ---
PAGER ID: [phone] MESSAGE: Ysabel SOLITARIO [id number]. [id number] Joni Pt.'s family here and asking about discharge. Are we still planning on discharging today?
[2018-05-12] MEDS ORDERED: LISI10TA4 PO (13:45)
[2018-05-12] MEDS ORDERED: DOXY100C2 PO (13:45)
[2018-05-12] MEDS ORDERED: PRED10TA23 PO (13:45)
[2018-05-12] MEDS ORDERED: COR3.125T PO (13:45)
[2018-05-12] MEDS ORDERED: APIX5TAB3 PO (13:45)
--- NOTE | 2018-05-12 14:56 | NUR ---
PAGER ID: [phone] MESSAGE: Ysabel SOLITARIO [phone], [id number] Peri Quinones Pt now states that he wants to stay and receive medical treatment. Thanks.
[2018-05-12 15:00] VITALS: BP 123/77
--- NOTE | 2018-05-12 15:01 | NUR ---
PAGER ID: [phone] MESSAGE: Ysabel [phone], [id number] Peri Quinones state will be here in 10-15 minutes, want to talk outside of pt's room. Thanks.
--- NOTE | 2018-05-12 17:04 | NUR ---
PAGER ID: [phone] MESSAGE: Millie SOLITARIO [phone] [id number] Joni. Pt.s codes status is palliative/comfort care just making sure you didn't want DNR and may I have something for pt's air hunger, Ativan? Thank you
--- NOTE | 2018-05-12 18:32 | NUR ---
Patient in room U 3027. I have received report from Hector Darnell & Efren Darnell and had the opportunity to ask questions and assume patient care. Addendum: 05/12/18 at 1832 by Josefina Diego RN Amended: Links added.
--- NOTE | 2018-05-12 18:34 | NUR ---
Problems reprioritized. Patient report given, questions answered & plan of care reviewed with Josefina SOLITARIO.
--- NOTE | 2018-05-12 20:00 | NUR ---
pt alert very [facility], pt anxious c/o sob sats at 92%.
--- NOTE | 2018-05-12 21:15 | NUR ---
medicated for back and generalized pain at time.
[2018-05-12] MEDS: Melatonin 3mg tablet PO SCH (21:17)
[2018-05-12 22:00] VITALS: BP 145/85
--- NOTE | 2018-05-12 22:48 | NUR ---
pt a/o less anxious at this time. no complaints.
--- NOTE | 2018-05-13 | NUR ---
medicated for heartburn with maalox and morphine 2mg for the back pain and solumedrol given. tolerated well very chitina teaching done.
[2018-05-13] MEDS: methylPREDNISolone sod succ/PF 40mg inj. IV SCH ×3 (00:02→16:50)
[2018-05-13] MEDS: morphine 2 MG/ML inj. syringe IV PRN ×4 (00:04→23:20)
--- NOTE | 2018-05-13 01:20 | NUR ---
resting no changes
[2018-05-13] MEDS: ipratropium/albuterol 3ml nebule NEB SCH ×6 (03:00→23:24)
--- NOTE | 2018-05-13 03:15 | NUR ---
resting no changes daylight savings time.
[2018-05-13 06:00] VITALS: BP 146/81
--- NOTE | 2018-05-13 06:36 | NUR ---
Problems reprioritized. Patient report given, questions answered & plan of care reviewed with Rylie Gutierrez. Addendum: 05/13/18 at 0637 by Josfeina Diego RN Amended: Links added.
[2018-05-13] MEDS: K and/or MAG REPLACEMENT MC SCH (08:00)
[2018-05-13] MEDS: lisinopril 10 MG tablet PO SCH (08:33)
[2018-05-13] MEDS: carVEDilol 3.125mg tablet PO SCH ×2 (08:33→20:34)
[2018-05-13] MEDS: CefTRIAXone/D5W-Rocephin 1gm 50 ML IV SCH (08:37)
[2018-05-13] MEDS: enoxaparin 50mg/0.5ml (from 3ml vial) syringe SUBCUT SCH (10:44)
--- NOTE | 2018-05-13 18:30 | NUR ---
Patient in room PCU 3027. I have received report from Kyra SOLITARIO and had the opportunity to ask questions and assume patient care.
--- NOTE | 2018-05-13 18:52 | NUR ---
Problems reprioritized. Patient report given, questions answered & plan of care reviewed with Stefany SOLITARIO.
[2018-05-13 19:00] VITALS: BP 148/94
--- NOTE | 2018-05-13 20:00 | NUR ---
MD Notification: Pt tachypneic and appeared uncomfortable. The morphine he was given earlier helped him breathe easier. New orders Morphine 2 mg IV Q2 hr PRN
[2018-05-13] MEDS: Melatonin 3mg tablet PO SCH (20:34)
[2018-05-14] MEDS: morphine 2 MG/ML inj. syringe IV PRN ×2 (03:06→10:04)
[2018-05-14] MEDS: ipratropium/albuterol 3ml nebule NEB SCH ×3 (03:47→12:10)
[2018-05-14 05:21] LABS: BASOPHILS % (AUTO) 0.2 % (0-1); EOSINOPHILS % (AUTO) 0 % (0-6); HEMATOCRIT 38.8 % (42.0-52.0); HEMOGLOBIN 12.9 g/dl (14.0-17.9); LYMPHOCYTES # (AUTO) 0.3 X10'3 (1.1-4.8); LYMPHOCYTES % (AUTO) 3.4 % (21-51); MEAN CORPUSCULAR HEMOGLOBIN 32.7 PG (27.0-31.0); MEAN CORPUSCULAR HGB CONC 33.1 g/dL (33.0-36.5); MEAN CORPUSCULAR VOLUME 98.7 FL (78-98); MEAN PLATELET VOLUME 8.8 FL (7.4-10.4); MONOCYTES # (AUTO) 0.4 X10'3 (0-0.9); MONOCYTES % (AUTO) 4.7 % (2-12); NEUTROPHILS # (AUTO) 7.4 X10'3 (1.8-7.7); NEUTROPHILS % (AUTO) 91.7 % (42-75); PLATELET COUNT 170 X10'3 (140-440); RED BLOOD COUNT 3.93 X10'6 (4.70-6.10); RED CELL DISTRIBUTION WIDTH 15.8 % (11.5-14.5); WHITE BLOOD COUNT 8.1 X10'3 (4.5-11.0)
[2018-05-14 05:34] LABS: ALANINE AMINOTRANSFERASE 14 U/L (12-78); ALBUMIN 3.2 G/DL (3.4-5.0); ALBUMIN/GLOBULIN RATIO 0.7 (1.1-1.5); ALKALINE PHOSPHATASE 70 IU/L (46-116); ANION GAP 6 (8-16); ASPARTATE AMINO TRANSFERASE 15 U/L (10-37); BILIRUBIN,TOTAL 0.5 MG/DL (0.1-1.0); BLOOD UREA NITROGEN 68 MG/DL (7-18); BUN/CREATININE RATIO 28.8 (5.4-32.0); CHLORIDE 102 MMOL/L (99-107); CREATININE 2.36 MG/DL (0.60-1.10); GLUCOSE 139 MG/DL (70-104); MAGNESIUM 2.6 MG/DL (1.5-2.4); POTASSIUM 5.5 MMOL/L (3.5-5.1); SODIUM 136 MMOL/L (135-145); TOTAL CARBON DIOXIDE 27.8 MMOL/L (24-32); TOTAL PROTEIN 7.5 G/DL (6.4-8.2); eGFR 27 ML/MIN
--- NOTE | 2018-05-14 06:30 | NUR ---
Problems reprioritized. Patient report given, questions answered & plan of care reviewed with Gordo SOLITARIO.
[2018-05-14] MEDS: CefTRIAXone/D5W-Rocephin 1gm 50 ML IV SCH (07:49)
[2018-05-14] MEDS: methylPREDNISolone sod succ/PF 40mg inj. IV SCH ×2 (07:49)
[2018-05-14] MEDS: lisinopril 10 MG tablet PO SCH (07:49)
[2018-05-14] MEDS: carVEDilol 3.125mg tablet PO SCH (07:49)
[2018-05-14] MEDS: K and/or MAG REPLACEMENT MC SCH (07:50)
[2018-05-14 09:00] VITALS: BP 130/84
[2018-05-14] MEDS: enoxaparin 50mg/0.5ml (from 3ml vial) syringe SUBCUT SCH (10:00)
--- NOTE | 2018-05-14 11:00 | NUR ---
Pt pulled PIV out, Dr. Ghotra paged about replacing d/t pt being sent home on home hospice this afternoon. Awaiting reply.
== END 2018-05-14 15:45 | disposition hospice, home (50) | DRG 175 ==
LOC: ER 09:46 → ED HOLD 13:51 → PCU 3S 05-11 01:35
PROVIDERS: ADMIT Internal Medicine; ATTEND Internal Medicine
PROC: CB121ZZ Planar Nuclear Medicine Imaging of Lungs and Bronchi using Technetium 99m (Tc-99m) (ICD-10-PCS; principal; 2018-05-10)
DX: I26.99 Other pulmonary embolism without acute cor pulmonale (principal); J96.01 Acute respiratory failure with hypoxia; J18.9 Pneumonia, unspecified organism; I13.0 Hypertensive heart and chronic kidney disease with heart failure and stage 1 through stage 4 chronic kidney disease, or unspecified chronic kidney disease; J44.1 Chronic obstructive pulmonary disease with (acute) exacerbation; J98.11 Atelectasis; J44.0 Chronic obstructive pulmonary disease with (acute) lower respiratory infection; I71.2 Thoracic aortic aneurysm, without rupture; I50.9 Heart failure, unspecified; Z51.5 Encounter for palliative care; N18.9 Chronic kidney disease, unspecified; H91.90 Unspecified hearing loss, unspecified ear; I25.10 Atherosclerotic heart disease of native coronary artery without angina pectoris; Z87.891 Personal history of nicotine dependence; Z80.9 Family history of malignant neoplasm, unspecified
CPT/HCPCS: 36415; 36600; 71045; 71250; 78582; 80053; 82803; 82948; 83735; 83880; 84484; 85018; 85025; 85610; 85730; 87070; 93005; 94640; 94668; 94760; 99285; A9539; A9540; G0378; J0456; J0696; J1644; J1650; J2270; J2920